=== PATIENT | male | born 1950 | race African-American/Black ===

== ENCOUNTER → 2016-10-08 | Outpatient (CLI) | payer OTHER, MEDICARE ==
[~2016-10-08] MED LIST: AMLODIPINE BESYL5 MG PO; ASPIRIN81 M2 PO; ATORVASTATIN CA10 MG PO; BACLOFEN10 MG PO; BACTRIM DS TAB1 EACH PO; CELEXA20 M1 PO; CELEXA20 MG PO; CLOPIDOGREL BIS75 MG PO; CLOPIDOGREL75 MG PO; COLESTID1 GM PO; FINASTERIDE5 M1 PO; FINASTERIDE5 MG PO; FLOMAX0.4 M1 PO; HUMULIN N100 UNIT/1 SUBQ; LEVEMIR SUBQ; LIPITOR80 MG PO; LOMOTIL WHITE2.5 M1 PO; LORTAB 7.5-3251 EACH PO; NOVOLOG100 U/ML; POLY-IRON PO; POLYSACC IRON150 MG PO
--- NOTE | ~2016-10-08 | EKG ---
PATIENT: SARMAD GONSALEZ UNIT #: [id number] Ventricular Rate: 78 BPM Atrial Rate: 78 BPM P-R Interval: 186 ms QRS Duration: 90 ms Q-T Interval: 388 ms QTC Calculation(Bezet): 442 ms P Polk: 66 degrees Calculated R Polk: 4 degrees Calculated T Polk: 55 degrees Diagnosis Line: Normal sinus rhythm Diagnosis Line: Normal ECG Diagnosis Line: No previous ECGs available Diagnosis Line: Confirmed by LYDIA ALVAREZ MD ([id number]) on 10/09/2016 Diagnosis Line: 7:00:28 PM INTERPRETING MD: ANTONIO SAM
[2016-10-08 08:08] LABS: HEMATOCRIT 37.7 % (38.0-50.0); HEMOGLOBIN 11.8 gm/dL (13.0-16.0); MEAN CELL VOLUME 76.9 FL (83-96); MEAN CORPUSCULAR HEMOGLOBIN 24.1 PG (28-34); MEAN CORPUSCULAR HGB CONC 31.3 g/dL (30-36); MEAN PLATELET VOLUME 8.3 FL (6.5-11.5); RED BLOOD COUNT 4.9 X10e (3.90-5.60); WHITE BLOOD COUNT 7.9 X10e3 (4.0-10.5)
[2016-10-08 08:37] LABS: ALBUMIN SERUM 3.1 g/dL (3.5-5.0); BILIRUBIN,TOTAL 0.9 mg/dL (0.2-2.0); CALCIUM SERUM 9.4 mg/dL (8.4-10.2); GLOM FILT RATE Estimated 89.9 mL/min (>60); PROTEIN TOTAL SERUM 7.7 g/dL (6.0-8.3)
[2016-10-08 12:29] LABS: URINE SOURCE CATH
[2016-10-08 12:39] LABS: URINE APPEARANCE TURBID; URINE BILIRUBIN NEG (NEG); URINE BLOOD 2+ (NEG); URINE COLOR YELLOW; URINE GLUCOSE 250 MG/DL (NEG); URINE KETONE NEG (NEG); URINE LEUKOCYTE ESTERASE 3+ (NEG); URINE NITRATE NEG (NEG); URINE PH 5.5 (5-8); URINE PROTEIN 2+ (NEG); URINE SPECIFIC GRAVITY 1.015 (1.003-1.035); URINE UROBILINOGEN 0.2 MG/DL (NEG)
[2016-10-08 12:45] LABS: URINE BACTERIA AUWI NEG (NEGATIVE); UWBCS1 AUWI INNUM (0-5)
[2016-10-08 12:55] LABS: URINE YEAST PRESENT
[2016-10-08 12:56] LABS: URINE SQUAMOUS EPITHELIAL CELL FEW /[HPF]
== END | disposition home or self-care (01) ==
LOC: CAMB 07:33
PROVIDERS: Specialist
DX: Z01.818 Encounter for other preprocedural examination (principal)
CPT/HCPCS: 36415; 80053; 81003; 85027; 87086; 93005; G0463

== ENCOUNTER 2016-10-15 05:51 | Inpatient (IN) | payer OTHER ==
--- NOTE | ~2016-10-15 | A ---
[facility] Nutrition Therapy DATE: 10/16/16 Patient: SARMAD GONSALEZ Physician: ETQUILA Address: [address] [place] [address] Room/Bed: [address] [place] [place] [address], Zip: [place] [address] Admit Date: 10/15/16 Date of : [birth year] Height: 5 9 Weight: 174 79 NUTRITIONAL ASSESSMENT: REASON: 2 pts RE: pressure ulcer, unintentional weight loss 66 yo male admitted for fecal incontience PMH: DM, HTN, high cholesterol, stomach ulcer, stroke, atrial fibrillation, arthritis Anthropometrics: Ht: 5'9" Wt: 79.1 kg (174#) BMI: 25.8 Labs: Gluc 180, Creat 1.6, Alb 2.3, Mg++ 1.5, POC 167, GFR 50.9 Meds: Novolog, Protonix, Zofran, KCl I/O & Bowel function: , last BM 10/14 Skin Integrity: Surgical incision (midline w/ yissel), diabetic ulcers (bottom of feet), ileostomy (R abd), shearing (coccyx), no edema noted Assessment: Chart reviewed, events noted. Pt is s/p ileocolonic anastomosis. Pt is currently NPO. Pt seemed to be in pain during visit. Pt reported no weight loss and wanting to eat. RD discussed importance of consuming adequate protein/calories once diet advances to promote healing. Pt reported no diet questions at this time. See recommendations below. Dx: Inadequate oral intake RT current clinical condition AEB NPO status. Intervention: 1. NPO 2. Glucerna shakes BID 3. MVI Monitoring, Evaluation and Goals: 1. PO intake; consume >75% of meals and supplements once diet advances 2. GI; promote regular GI function 3. Skin; promote healing 4. Weight; prevent unintentional weight loss 5. Labs; WNL Recommendations: 1. Once medically feasible, advance diet as tolerated to consistent carb. -IF pt to have GI discomfort/diarrhea, add GI soft/low fiber diet [facility] Nutrition Therapy DATE: 10/16/16 Patient: SARMAD GONSALEZ Physician: TEQUILA Address: [address] [place] [address] Room/Bed: [address] [place] [address], Zip: [place] [address] Admit Date: 10/15/16 Date of : [birth year] Height: 5 9 Weight: 174 79 2. Once diet advances, please order [place] Glucerna shakes BID w/ meals. 3. Add multivitamin to pt's current medication regimen to promote skin healing. Pt is at a mild-moderate nutritional risk. RD will f/u per protocol. Respectfully, Elizabeth Jules, Manager Facility Christine Richey MS, RD, LD [facility] Psychiatric cc: client file
--- NOTE | ~2016-10-15 | OR ---
Unit #: [id number] #: [id number] Patient: SARMAD CASON [id number] [facility] [address] [place], [place] [address] [id number] Kady MR#: [id number] NAME: SARMAD CASON ROOM: 464 Date of Procedure: 10/15/2016 Admission Date: 10/15/2016 Surgeon: Zain Spivey M.D. : 1950 Attending Physician: Zain Spivey M.D. Primary Care Physician: China Shrestha OPERATIVE REPORT PREOPERATIVE DIAGNOSIS Fecal incontinence. POSTOPERATIVE DIAGNOSIS Fecal incontinence. PROCEDURES PERFORMED Exploratory laparotomy, extensive lysis of adhesions, takedown of ileorectal anastomosis, and end ileostomy formation. VISUAL MANAGER Jayy Torrez M.D. ANESTHESIA General endotracheal anesthesia. ESTIMATED BLOOD LOSS 150 mL. INDICATIONS FOR PROCEDURE Mr. Cason is a 66-year-old gentleman, who is debilitated from a stroke and has had a previous subtotal colectomy with an ileorectal anastomosis. He is unable to control his stool and has severe fecal incontinence that is difficult for his to care for at home and is also causing skin breakdown and chronic infection and irritation. DESCRIPTION OF PROCEDURE The patient was admitted to [facility], positively identified, and transported to the operating room and after induction of general endotracheal anesthesia, he received antibiotics per SCIP protocol and he was also given some Diflucan because of yeast infection of his urine. His abdominal wall hair was clipped and a Priest catheter was placed. He was then prepped and draped in the usual sterile fashion. Preoperatively, I had marked the site for the stoma and I re-marked that in the operating room. After being prepped and draped in usual sterile fashion, his SCDs were hooked up and a midline incision was made. We dissected down through the soft tissue and entered into the peritoneal cavity, taking down adhesions to the anterior abdominal wall as we went and once the incision was completely opened up, I then spent 75 minutes taking down the adhesions and freeing up the bowel to identify the ileorectal anastomosis in the pelvis and freed up all bowel loops. There were several areas, where the small bowel was a little more dilated and Unit #: [id number] #: [id number] Patient: CASON,SARMAD others and I was concerned he may have areas of partial obstruction from the scar tissues, so we took down all the scar tissue and ran the bowel from the ligament of Treitz to the ileorectal anastomosis, freeing up all of the small bowel. Once it had been completely freed up, we ran it in an antegrade fashion and a retrograde fashion to ensure that there were no injuries and there were no further adhesions. No injuries were noted and all adhesions were freed up. I copiously irrigated the peritoneal cavity. There was good hemostasis. I then mobilized the ileorectal anastomosis in the pelvis. Once I could completely mobilize it, a 75 mm HERMINIO stapler was used to divide the rectum distal to the anastomosis and then the ileum proximal to the anastomosis. The mesentery around the anastomosis was clamped, divided, and ligated and the specimen was sent to the laboratory. I further mobilized the terminal ileum, so that it could be brought up as an end ileostomy. Once it had been adequately mobilized and had adequate blood supply, I then created a stoma in the right lower quadrant, where it had been previously marked. I could easily bring the terminal ileum out through the stoma site. We positioned the stoma, so that there was no twisting of the mesentery and that there was a nice lie of the small bowel in the peritoneal cavity. I then used a Reny to hold the ileostomy portion of the terminal ileum in position and we observed it for several minutes to ensure that there was in fact adequate blood supply. Again, the peritoneal cavity was irrigated. There was good hemostasis. Sponge counts were correct. The midline fascia was closed with #1 looped PDS suture. Soft tissue was irrigated with saline and Betadine. Hemostasis obtained and the skin was closed with sterile skin yissel. After the anterior abdominal wall was cleaned, Tegaderm were placed over the wound and created an occlusive dressing. I then opened the ileum and matured end ileostomy in the usual fashion using 3-0 Vicryl sutures. Mastisol and stoma bag were placed. After the stoma bag was placed, sponges and needle counts were correct x3. The patient was transported to recovery in stable condition. Findings and postoperative expectations were discussed with his . Dictated by... Zain Spivey M.D. [employer] TD: 10/15/2016 22:56 JOB #: [id number] OPERATIVE REPORT Page 1 of 1 X Zain Spivey MD PROCEDURE OPERATIVE NOTE
--- NOTE | ~2016-10-15 | DS ---
Unit #: [id number] #: [id number] Patient: SARMAD GONSALEZ [id number] [address] [address] [id number] MR#: [id number] NAME: SARMAD GONSALEZ ROOM: 464 Age: 66 Sex: M Admission Date: 10/15/2016 : 1950 Discharge Date: 10/18/2016 Attending Physician: Zain Spivey M.D. Primary Care Physician: China Shrestha DISCHARGE SUMMARY ADMITTING DIAGNOSIS Fecal incontinence. DISCHARGE DIAGNOSIS Fecal incontinence. SECONDARY DIAGNOSES 1. Diabetes. 2. History of stroke. 3. Hypertension. 4. Urinary retention. PROCEDURE PERFORMED On 10/15/2016 he underwent end ileostomy. BRIEF HOSPITAL COURSE This is a 66-year-old gentleman who has severe fecal incontinence after undergoing ileorectal anastomosis. It has been apparently very difficult for the patient's family to take care of him with the fecal incontinence and the history of stroke. He was counselled, and options were given for end ileostomy, for which he is here. He underwent end ileostomy on 10/15/2016 and postoperatively did well. He was advanced to a regular diet by postoperative day #2, which he was tolerating and having good stoma function. DISPOSITION Discharged to home. FOLLOW-UP He is to follow up with Dr. Spivey in the office in 7-10 days. MEDICATIONS He is to resume his home medications. He was given a prescription for pain medicine. DISCHARGE INSTRUCTIONS 1. He will continue his Priest, as he had prior to coming into the hospital. 2. Will arrange for home health to assist with initial stoma management. Unit #: [id number] #: [id number] Patient: SARMAD GONSALEZ Dictated by... Mike Ibrahim III, M.D. ROXIE/lupis TD: 10/19/2016 15:39 JOB #: [id number] DISCHARGE SUMMARY Page 1 of 1 X Mike Ibrahim III, MD DISCHARGE SUMMARY
[~2016-10-15 05:51] MED LIST changes: -BACLOFEN10 MG PO; -BACTRIM DS TAB1 EACH PO; -CELEXA20 M1 PO; -CLOPIDOGREL BIS75 MG PO; -FINASTERIDE5 M1 PO; -LEVEMIR SUBQ; -LIPITOR80 MG PO; -LORTAB 7.5-3251 EACH PO; -NOVOLOG100 U/ML; -POLY-IRON PO
[2016-10-15] MEDS ORDERED: LORTAB 7.5-3251 EACH PO (06:24)
[2016-10-15] MEDS ORDERED: LIPITOR80 MG PO (08:38)
[2016-10-15] MEDS ORDERED: CLOPIDOGREL BIS75 MG PO (08:38)
[2016-10-15] MEDS ORDERED: AMLODIPINE BESYL5 MG PO (08:39)
[2016-10-15] MEDS ORDERED: CELEXA20 M1 PO (08:39)
[2016-10-15] MEDS ORDERED: BACLOFEN10 MG PO (08:40)
[2016-10-15] MEDS ORDERED: FLOMAX0.4 M1 PO (08:40)
[2016-10-15] MEDS ORDERED: FINASTERIDE5 M1 PO (08:41)
[2016-10-15] MEDS ORDERED: POLY-IRON PO (08:41)
[2016-10-15] MEDS ORDERED: LEVEMIR SUBQ ×2 (16:06)
[2016-10-15] MEDS ORDERED: NOVOLOG100 U/ML (16:07)
[2016-10-16 04:31] LABS: BASOPHIL% 0.4 % (0-2.5); EOSINOPHIL# 0.1 X10e3 (0-0.7); EOSINOPHIL% 0.8 % (0.0-7.0); HEMATOCRIT 33.8 % (38.0-50.0); HEMOGLOBIN 10.4 gm/dL (13.0-16.0); LYMPHOCYTE# 1.3 X10e3 (1.0-3.5); MEAN CELL VOLUME 77.6 FL (83-96); MEAN CORPUSCULAR HEMOGLOBIN 23.8 PG (28-34); MEAN CORPUSCULAR HGB CONC 30.7 g/dL (30-36); MEAN PLATELET VOLUME 8.3 FL (6.5-11.5); MONOCYTE# 1.5 X10e3 (0-1.0); MONOCYTE% 12.5 % (3.0-12.0); NEUTROPHIL# 9.2 X10e3 (1.5-7.1); NEUTROPHIL% 75.3 % (40-75); PLATELET COUNT 278 X10e3 (140-420); RED BLOOD COUNT 4.36 X10e (3.90-5.60); RED CELL DISTRIBUTION WIDTH 15.1 % (11.0-15.5); WHITE BLOOD COUNT 12.2 X10e3 (4.0-10.5)
[2016-10-16 04:33] LABS: DIFF IND NO
[2016-10-16 04:59] LABS: ALBUMIN SERUM 2.3 g/dL (3.5-5.0); BILIRUBIN,TOTAL 1.1 mg/dL (0.2-2.0); BUN/CREATININE RATIO 10.62; CALCIUM SERUM 8.7 mg/dL (8.4-10.2); CREATININE SERUM 1.6 mg/dL (0.6-1.4); GLOM FILT RATE Estimated 50.9 mL/min (>60); MAGNESIUM 1.5 mg/dL (1.6-3.0); PHOSPHOROUS 3.3 mg/dL (2.5-4.6); POTASSIUM 4.5 mmol/L (3.5-5.1); PREALBUMIN 9.2 mg/dL (17.0-42.0); PROTEIN TOTAL SERUM 6.6 g/dL (6.0-8.3)
[2016-10-17 02:57] LABS: HEMATOCRIT 30.1 % (38.0-50.0); HEMOGLOBIN 9.5 gm/dL (13.0-16.0); MEAN CELL VOLUME 75.9 FL (83-96); MEAN CORPUSCULAR HGB CONC 31.6 g/dL (30-36); MEAN PLATELET VOLUME 8.2 FL (6.5-11.5); RED BLOOD COUNT 3.97 X10e (3.90-5.60); RED CELL DISTRIBUTION WIDTH 15.4 % (11.0-15.5); WHITE BLOOD COUNT 9.5 X10e3 (4.0-10.5)
[2016-10-17 03:20] LABS: ALBUMIN SERUM 2.4 g/dL (3.5-5.0); BILIRUBIN,TOTAL 1.3 mg/dL (0.2-2.0); CALCIUM SERUM 8.6 mg/dL (8.4-10.2); CREATININE SERUM 1.3 mg/dL (0.6-1.4); GLOM FILT RATE Estimated 65.5 mL/min (>60); POTASSIUM 4.1 mmol/L (3.5-5.1); PROTEIN TOTAL SERUM 7.1 g/dL (6.0-8.3)
[2016-10-20] MEDS ORDERED: BACTRIM DS TAB1 EACH PO (15:05)
== END 2016-10-20 15:27 | disposition home health service (06) | DRG 330 ==
LOC: CSUR 05:51 → CPACUOF 10:00 → C4C 11:00
PROVIDERS: Specialist; Surgery
PROC: 0DN80ZZ Release Small Intestine, Open Approach (ICD-10-PCS; principal; 2016-10-15 07:30)
PROC: 0D1B0Z4 Bypass Ileum to Cutaneous, Open Approach (ICD-10-PCS; 2016-10-15 07:30)
DX: R15.9 Full incontinence of feces (principal); I69.351 Hemiplegia and hemiparesis following cerebral infarction affecting right dominant side; I48.91 Unspecified atrial fibrillation; I10 Essential (primary) hypertension; E11.9 Type 2 diabetes mellitus without complications; M19.90 Unspecified osteoarthritis, unspecified site; N40.1 Benign prostatic hyperplasia with lower urinary tract symptoms; R33.8 Other retention of urine
CPT/HCPCS: 80053; 82947; 83735; 84100; 84134; 85025; 85027; 87070; 87077; 87186; 87205; 88307; 94760; 97110; 97116; 97163; 97167; 97530; C9113; G8978-GP; G8979-GP; G8987-GO; G8988-GO; G8989-GO; J1450; J1650; J1815; J2270; J2405; J2710; J2765; J3010; J3370